=== PATIENT | male | born 1965 | race Caucasian/White ===

== ENCOUNTER 2016-12-10 17:53 | Emergency (ER) | payer OTHER ==
[~2016-12-10] VITALS: Ht 185.4 cm; Wt 135.2 kg
--- NOTE | 2016-12-10 19:24 | ED UPPER/LOWER EXTREMITY COMPL ---
History of Present Illness General Chief Complaint: Upper Extremity Injury Stated Complaint: LT ARM INJ Source: patient Exam Limitations: no limitations Vital Signs & Intake/Output Vital Signs & Intake/Output Vital Signs Date Time Temp Pulse Resp B/P B/P Pulse O2 O2 Flow FiO2 Mean Ox Delivery Rate 12/10 1957 97.8 89 18 158/72 97 Room Air 12/100 98 Room Air 12/10 1801 96.8 108 16 161/89 97 Room Air ED Intake and Output 12/11 0000 12/10 1200 Intake Total Output Total Balance Patient 298 lb Weight Weight Reported by Patient Measurement Method Allergies Coded Allergies: No Known Allergies (12/10/16) Reconcile Medications Aspirin (Ecotrin*) 81 MG TABLET.DR 1 TAB PO DAILY HEART/BLOOD (Reported) Glipizide 5 MG TABLET 1 TAB PO BID DM (Reported) Insulin Glargine,Hum.rec.anlog (Lantus Solostar) 100 UNIT/ML (3 ML) INSULN.PEN 20 UNIT SC QPM DM (Reported) Levothyroxine Sodium 150 MCG TABLET 1 TAB PO DAILY THYROID (Reported) Lisinopril 30 MG TABLET 1 TAB PO DAILY BP (Reported) Meloxicam (Mobic) 15 MG TABLET 1 TAB PO DAILY PRN PAIN Metformin HCl 1,000 MG TABLET 1 TAB PO BID DM (Reported) Sitagliptin Phosphate (Januvia) 100 MG TABLET 1 TAB PO DAILY DM (Reported) Triage Note: TRIAGE: LEFT ARM PAIN AFTER LIFTING ACTION PREFORMED ON MACHINE AT WORK, EXPERIENCED SEVERE LEFT DELTOID AREA PAIN. DEMONSTRATES FULL ROM OF JOINT WHEN TELLING STORY. DECLINES PAIN MEDS OFFERED IN TRIAGE. STATES PAIN IS IMPROVED AT THIS TIME. STATES PAIN IS IMPROVED AT THIS TIME. Triage Nurses Notes Reviewed? yes Onset: Abrupt Duration: constant Timing: single episode today Severity: severe Severity Numbers: 7 HPI: Patient is a 51-year-old male who presents emergency and that today while at work he was trying to lift an object approximately weighing 75 pounds with no help where he had acute onset of sharp stabbing severe left shoulder pain. Patient states that he did immediately iced with improvement of the symptoms however he states that with left shoulder movements above 90 his pain is worse. Patient is left arm dominant. Denies any significant history of left shoulder injuries or surgeries. (BELIA LEMON,ROSALIND) Past History Travel History Traveled to [place] past 21 day No Medical History Any Pertinent Medical History? see below for history Neurological: NONE EENT: NONE Cardiovascular: hypertension Respiratory: NONE Gastrointestinal: NONE Hepatic: NONE Renal: NONE Musculoskeletal: NONE Psychiatric: anxiety Endocrine: diabetes, hypothyroidism Surgical History Surgical History: non-contributory Psychosocial History What is your primary language Dutch Tobacco Use: Never used Family History Hx Contributory? No (ROSALIND COULTER) Review of Systems Review of Systems Constitutional: Reports: no symptoms. EENTM: Reports: no symptoms. Respiratory: Reports: no symptoms. Cardiovascular: Reports: no symptoms. Gastrointestinal/Abdominal: Reports: no symptoms. Genitourinary: Reports: no symptoms. Musculoskeletal: Reports: see HPI, joint pain. Skin: Reports: no symptoms. Neurological/Psychological: Reports: no symptoms. Hematologic/Endocrine: Reports: no symptoms. Immunological: Reports: no symptoms. All Other Systems: Reviewed and Negative (ROSALIND COULTER) Physical Exam Physical Exam General Appearance: no apparent distress, alert, comfortable Neurologic/Tendon: normal sensation, normal motor functions, normal tendon functions, responds to pain, no evidence tendon injury, no pulse deficit Skin: intact, normal color, warm/dry Comments: Well-developed well-nourished no apparent distress. HEENT: Atraumatic, extraocular motion intact Neck: Supple, no lymphadenopathy Back: Nontender Respiratory: No respiratory distress Extremities: Left shoulder normal inspection generalized glenohumeral point tenderness and lateral deltoid point tenderness, full active range of motion noted with pain above 90 of flexion abduction 5 out of 5 resisted range of motion with pain with internal rotation, external rotation and abduction Left elbow normal inspection nontender biceps tendon intact negative HOOK test Full active range of motion noted Left upper extremity dermatomes intact, radial pulse +2 Neuro: Alert and oriented x3 Psych: Mood affect normal, normal memory normal judgment. (ROSALIND COULTER) Progress Differential Diagnosis: arterial insufficiency, compartment syndrome, contusion, dislocation, DVT, fracture, gout, septic arthritis, sprain, tendon injury Plan of Care: Orders Procedure Date/time Status XRY-SHOULDER COMPLETE-LEFT 12/10 1920 Active NO ACUTE OSSEOUS INJURY NOTED ON XRAY PT WAS STRONGLY ADVISED TO FOLLOW UP WITH ORTHOPEDICS (ROSALIND COULTER) Diagnostic Imaging: Viewed by Me: Radiology Read. Radiology Impression: SEE COMMENTS Comments: PATIENT: ELAINE KIRKLAND PRESENT AGE: 51 PATIENT ACCOUNT NO: [id number] : 63 LOCATION: [facility] ORDERING PHYSICIAN: ROSALIND LEMON SERVICE DATE: 12/10/16 EXAM TYPE: RAD - XRY-SHOULDER COMPLETE-LEFT EXAMINATION: XR SHOULDER, LEFT CLINICAL INFORMATION: Left shoulder pain. COMPARISON: No relevant prior studies are available for comparison. TECHNIQUE: AP external rotation, Grashey, scapular Y, and axillary views of the left shoulder. FINDINGS: No fracture or dislocation. No glenohumeral joint space narrowing or marginal osteophytes. Mild acromioclavicular joint space narrowing and small marginal osteophytes. No osseous erosion. No abnormal soft tissue calcification. IMPRESSION: Mild acromioclavicular osteoarthritis. DICTATED BY: MELINDA MORALES MD (ROSALIND COULTER) Departure Departure Disposition: HOME OR SELF CARE Condition: Stable Clinical Impression Primary Impression: Shoulder pain, left Referrals: SIERRA GARCIA,JULIENNE GARCIA MD,TATY (PCP/Family) Additional Instructions: As discussed begin icing the area directly 20 minutes every 2 hours. Begin the prescription meloxicam for pain and inflammation. If symptoms worsen return to emergency room. If no better in one week follow-up with orthopedic Julienne Mustafa MD for further evaluation treatment Departure Forms: Customer [employer] Employee [employer] General Discharge Information Prescriptions: Current Visit Scripts Meloxicam (Mobic) 1 TAB PO DAILY PRN PAIN #15 TAB (ROSALIND COULTER) PA/LINE ORDERING CLINICIAN Co-Sign Statement Statement: ED Attending supervision documentation- [] I saw and evaluated the patient. I have also reviewed all the pertinent lab results and diagnostic results. I agree with the findings and the plan of care as documented in the PA's/LINE ORDERING CLINICIAN's documentation. [X] I have reviewed the ED Record and agree with the PA's/LINE ORDERING CLINICIAN's documentation. [] Additions or exceptions (if any) to the PAs/LINE ORDERING CLINICIAN's note and plan are summarized below: [] (URIEL GARCIA,PHYLICIA Jeffers)
[2016-12-10] MEDS ORDERED: MOBIC15 M1 PO (19:41)
[2016-12-10] MEDS ORDERED: METFORMIN HCL1000 M1 PO (19:52)
[2016-12-10] MEDS ORDERED: LISINOPRIL30 M1 PO (19:52)
[2016-12-10] MEDS ORDERED: JANUVIA100 M1 PO (19:52)
[2016-12-10] MEDS ORDERED: ASPIRIN EC81 M1 PO (19:53)
[2016-12-10] MEDS ORDERED: LANTUS SOL100 UNIT/1 SC (19:53)
[2016-12-10] MEDS ORDERED: LEVOTHYROXINE150 MCG PO (19:53)
[2016-12-10] MEDS ORDERED: GLIPIZIDE5 M2 PO (19:53)
[2016-12-10 19:58] VITALS: BP 158/72
--- NOTE | 2016-12-10 20:07 | RADIOLOGY REPORT ---
EXAMINATION: XR SHOULDER, LEFT CLINICAL INFORMATION: Left shoulder pain. COMPARISON: No relevant prior studies are available for comparison. TECHNIQUE: AP external rotation, Grashey, scapular Y, and axillary views of the left shoulder. FINDINGS: No fracture or dislocation. No glenohumeral joint space narrowing or marginal osteophytes. Mild acromioclavicular joint space narrowing and small marginal osteophytes. No osseous erosion. No abnormal soft tissue calcification. IMPRESSION: Mild acromioclavicular osteoarthritis.
== END 2016-12-10 19:59 ==
LOC: ERH 17:53
DX: M25.512 Pain in left shoulder (principal)
CPT/HCPCS: 73030-LT